=== PATIENT | female | born 1965 | race Caucasian/White ===

== ENCOUNTER → 2023-07-24 19:09 | Outpatient (REF) | payer BC, SELFPAY | LOC: WDC 19:09 | PROVIDERS: ATTENDING PHYSICIAN Obstetrics & Gynecology; FAMILY PHYSICIAN Family Medicine | DX: Z12.31 Encounter for screening mammogram for malignant neoplasm of breast (principal) | CPT/HCPCS: 77063; 77067 ==

== ENCOUNTER 2024-02-15 05:09 | Emergency (ER) | payer BC, SELFPAY ==
[2024-02-15 05:13] VITALS: BP 104/68
[2024-02-15 09:00] VITALS: BP 111/67; BMI 23.6
[2024-02-15 09:09] LABS: % Basophils 0.6 % (0-2); % Eosinophils 1.8 % (0-6); % Immature Granulocytes 0.3 % (0-0.5); % Lymphocytes 31.3 % (20.5-51.1); % Monocytes 7.9 % (1.7-9.3); % Neutrophils 58.1 % (42.2-75.2); Absolute Eosinophils 0.1 10^3/uL (0-0.7); Absolute Lymphocytes 2.1 10^3/uL (1.2-3.4); Absolute Monocytes 0.5 10^3/uL (0.1-0.6); Absolute Neutrophils 3.9 10^3/uL (1.4-6.5); Hematocrit 42.1 % (37.0-47.0); Hemoglobin 13.5 g/dL (12.0-16.0); Mean Corp Hgb Conc. 32.1 g/dL (33.0-37.0); Mean Corpuscular Hgb 29.3 pg (27.0-31.0); Mean Corpuscular Volume 91.3 fL (81.0-99.0); Mean Platelet Volume 9.7 fL (7.4-10.4); Nucleated Red Blood Cells % 0 %; Platelet Count 215 10^3/uL (130-400); Red Blood Cell Count 4.61 10^6/uL (4.20-5.40); Red Cell Dist. Width 12.3 % (11.5-14.5); White Blood Cell Count 6.7 10^3/uL (4.8-10.8)
[2024-02-15 09:22] LABS: ALT (SGPT) 69 U/L (0-35); AST (SGOT) 40 U/L (14-36); Albumin 4.4 g/dl (3.5-5.0); Alkaline Phosphatase 99 U/L (38-126); Blood Urea Nitrogen 14 mg/dl (7-17); Calcium 9.4 mg/dl (8.4-10.2); Carbon Dioxide 29 mmol/L (22-30); Chloride 102 mmol/L (98-107); Estimated Creatinine Clearance 87 ml/min; Glucose 99 mg/dl (70-99); Sodium 139 mmol/L (135-145); Total Bilirubin 0.3 mg/dl (0.2-1.3); Total Protein 7.1 g/dl (6.3-8.2); eGFR > 60.00
[2024-02-15 09:29] LABS: Urine Albumin Negative (Neg - Trace); Urine Bilirubin Negative (Negative); Urine Character Clear (Clear); Urine Color Yellow; Urine Glucose Negative (Negative); Urine Ketone Negative (Negative); Urine Leukocyte 2+ (Negative); Urine Nitrite Negative (Negative); Urine Occult Blood Negative (Negative); Urine Urobilinogen Negative (Neg - 1+)
[2024-02-15 09:38] LABS: Lipase 68 U/L (23-300)
[2024-02-15] MEDS: TORADOL 15 MG IV ×2 (09:55→11:53)
[2024-02-15] MEDS: NSS 1000 IV (09:56)
--- NOTE | 2024-02-15 10:36 | ED.GENMED ---
History of Present Illness
General
Chief Complaint: Urinary Symptoms
Source: patient
Exam Limitations: none
Time Seen by Provider: 02/15/24 08:48
Nursing documentation reviewed up to this point in time: agreed with
History of Present Illness
History of Present Illness:
Patient is a 58-year-old female with a history of previous urinary tract infections and kidney stones not requiring surgery presents for some generalized suprapubic pain and urinary discomfort that started 3 weeks ago. She had a little bit of gross
hematuria as well but it seemed to get better for a week or 2 before she ended up having another episode of painless hematuria but just had some discomfort in her suprapubic region in general with radiation to her back. Patient says that she ended
up seeing her family doctor 5 days ago who told her she had blood in her urine and likely a urinary tract infection so they started her on Bactrim. Patient took that for 2 days before getting a call that she needed to have her antibiotic switched
and she was switched to plain amoxicillin 500 3 times daily which she has taken for the last 2-1/2 days she still having the same symptoms of not feeling well, some nausea, lower abdominal pain radiating to both sides of her back. She says she just
does not feel well, she has a headache. She has not had a fever or chills. She has no history of pyelonephritis
Past History
Past History
ED Past Medical History: GERD and Other (Kidney stones, UTIs)
Social History
Tobacco: Non-smoker
Alcohol: None
Drug: None
Review of Systems
Review of Systems
Allergies reviewed?: Yes
All Other Systems: Not applicable
Phy Exam
Physical Exam
Physical Exam:
GENERAL: Alert, looks comfortable
Neck: supple
CARDIAC: Regular rate and rhythm .
LUNGS: Clear breath sounds bilaterally, no acute respiratory distress, no wheezes/rales/rhonchi
ABDOMEN: Soft, normal bowel sounds, nondistended, moderate suprapubic tenderness s, no guarding, no rebound, neg kevin's
Left CVA tenderness
NEUROLOGICAL: Alert and oriented, no focal neuro deficits
SKIN: Warm and dry, skin intact.
PSYCH: Normal and appropriate interaction.
Course
Orders/Labs/Results
Orders:
Orders
02/15/24 08:55
Complete Blood Count/With Diff Urgent
Comprehensive Metabolic Panel Urgent
Lipase Urgent
Comment: ADD ON
Urinalysis Reflex To Culture Urgent
Date Specimen was Collected: 02/15/24
Time Specimen was Collected: 08:50
Urine Microscopic Reflex Cult Urgent
Urine Culture Urgent
SHEREE Source: U
Specimen Description:
Date Specimen was Collected: 02/15/24
Time Specimen was Collected: 08:50
02/15/24 09:04
Add On- LAB Urgent
Tests Added?: Lipase
02/15/24 09:10
CT Abd/Pel (IV only)-DH only Urgent
Comment:
Reason For Exam: b/l CVA pain, UTI; h/o stones
0.9% Sodium Chloride 1000 ml [Nss] 1,000 ml IV BOLUS
Ketorolac [Toradol] 15 mg IV NOW STA
02/15/24 11:45
Acetaminophen [Tylenol] 650 mg PO NOW STA
Ketorolac [Toradol] 15 mg IV NOW STA
02/15/24 11:52
Chlamydia/GC by PCR Urgent
SHEREE Source: Endo-Cervical
Specimen Description:
Source:: ENDOCERVICAL
Date Specimen was Collected: 02/15/24
Time Specimen was Collected: 11:47
Abnormal Lab Results
02/15/24
08:55
MCHC 32.1 L g/dL
(33.0-37.0)
Creatinine 0.5 L mg/dL
(0.6-1.0)
AST 40 H U/L
(14-36)
ALT 69 H U/L
(0-35)
Leukocyte Esterase Rfl 2+ A
(Negative)
02/15/24 08:55
02/15/24 08:55
Vital Signs
Initial and Last Documented VS:
Initial Vital Signs
Temp Pulse Resp BP Pulse Ox
36.8 C 74 20 104/68 98
02/15/24 05:13 02/15/24 05:13 02/15/24 05:13 02/15/24 05:13 02/15/24 05:13
Last Documented Vital Signs
Temp Pulse Resp BP Pulse Ox
36.6 C 74 20 100/72 100
02/15/24 09:00 02/15/24 11:31 02/15/24 11:31 02/15/24 12:00 02/15/24 12:15
MDM/Problems Addressed
Differential Diagnosis Includes:
Kidney stone, cystitis, pelvic inflammatory disease, pyelonephritis
MDM/Problems Addressed:
58-year-old female with a history of previous UTIs and kidney stones presents for several days of lower abdominal pain rating to her back, not feeling well, achy, and fatigued. Patient went to her family doctor 5 days ago where she had a UA and
tested positive for an infection. She was given Bactrim for several days and then switched to amoxicillin which she has been taking but still feeling symptomatic. She has seen a couple of times that she has had gross hematuria. On exam the
patient's nontoxic-appearing, comfortable, has a little bit of CVA tenderness and moderate suprapubic tenderness but no guarding or rebound. Her labs were reviewed with a normal white count, mildly elevated liver enzymes, normal creatinine, normal
pancreas, urine looks contaminated with leukocytes, 3-5 whites, some urothelial cells and crystals. She is negative nitrate and not having any blood.
Her CT scan shows no signs of obstructive uropathy, she does have a small nonobstructing left renal calculus 5 mm and moderate colonic stool burden which could reflect constipation. Her bladder looks unremarkable. I did a pelvic exam which did not
show any signs of obvious cervicitis she was sent for GC chlamydia testing. She will need to be called back with these results if positive.
For now I did reach out to her family doctor's office to try to get a copy of the urine culture results to see if the amoxicillin would suffice. Otherwise she will be sent home with outpatient follow-up
URINE culture was group B strep susceptable to darin, pt on amox
no treatment change
d/w pcp dr. edward
who agree with plan
gc/ct pending
d/c home
*Critical Care Note
Total Time (30-74mins, 75-104mins- exclusive of procedures): Not Applicable
ED Attending Note
-
Portions of this chart may have been created with voice recognition software.� Occasional wrong word or��sound alike� substitutions may have occurred due to the inherent limitations of voice recognition software.
Discharge Plan
Departure
Patient Disposition: Home (Routine Discharge)
Date of Disposition: 02/15/24
Time of Disposition: 11:33
Patient with high blood pressure during this ER visit?: No
Condition: Fair
Discharge Problem:
Abdominal pain
Instructions: Urinary Tract Infection, Adult (DC), Abdominal pain in adults - ED discharge instructions
Prescriptions:
No Action
No Current Medications
0
Referrals:
Keaton Edward MD [Family Provider] - Follow up in 2-3 days
Activity Restrictions/Additional Instructions:
Were not entirely sure the cause of your symptoms however it could be just from your urinary tract infection. Your urine today looked contaminated but I would recommend that you continue your antibiotics. Your bladder looks normal on your CAT
scan. You had no passing kidney stones but do have a 5 mm stone in the pole of your left kidney. Incidentally you also have some stool burden in your colon which could reflect constipation. This can also cause pain. You have a tiny 4 mm
subpleural right middle lobe nodule which looks benign,
this is in your lung. It just needs follow-up in 6 to 12 months
Continue antibiotics, bland diet, try a dose of MiraLAX. Take Tylenol or ibuprofen for pain
tylenol is 650 mg every 6 horus as needed
motrin is 600 mg every 8 hours as needed
. Return for any worsening symptoms.
Interventions
Interventions:
*Risk Screen - Suicide Last Done: 02/15/24 05:13
*General Assessment Last Done: 02/15/24 09:00
*Neglect/Abuse Screening Last Done: 02/15/24 05:13
ED- Fall Risk Assessment Last Done: 02/15/24 09:00
*ED COVID-19 Vaccine History Last Done: 02/15/24 09:00
*Nursing Disposition Last Done: 02/15/24 12:27
ED-Female Genitourinary Assessment Last Done: 02/15/24 09:00
Discharge Date and Time
Discharge Date/Time: 02/15/24 12:28
Print Language: SWEDISH
[2024-02-15 10:41] LABS: Urine Amorphous Seen; Urine Squamous Cell 26-30 /LPF (Few)
[2024-02-15 10:44] LABS: Urine Red Blood Cell 0-2 /HPF (0-2)
[2024-02-15 11:21] VITALS: BP 139/75
[2024-02-15 11:31] VITALS: BP 139/75
[2024-02-15 12:00] VITALS: BP 100/72
== END 2024-02-15 12:28 | disposition home or self-care (01) ==
LOC: EMR 05:09
PROVIDERS: Physician Assistant; EMERGENCY PHYSICIAN Emergency Medicine; FAMILY PHYSICIAN Family Medicine
DX: R10.9 Unspecified abdominal pain (principal)
CPT/HCPCS: 99285; 96374; 96376; 96361; 74177; 80053; 81003; 81015; 83690; 85025; 87086; 87491; 87591; Q9967

== ENCOUNTER → 2024-03-31 15:11 | Outpatient (REF) | payer BC, SELFPAY | LOC: RAD 15:11 | PROVIDERS: ATTENDING PHYSICIAN Surgery; FAMILY PHYSICIAN Family Medicine | DX: N20.0 Calculus of kidney (principal) | CPT/HCPCS: 74018 ==

== ENCOUNTER → 2024-04-23 16:36 | Outpatient (REF) | payer BC, SELFPAY | LOC: RAD 16:36 | PROVIDERS: ATTENDING PHYSICIAN Surgery; FAMILY PHYSICIAN Family Medicine | DX: N20.0 Calculus of kidney (principal) | CPT/HCPCS: 74018 ==

== ENCOUNTER 2024-05-21 06:12 | Day surgery (SDC) | payer BC, SELFPAY ==
[2024-05-13 08:48] LABS: Hematocrit 38.1 % (37.0-47.0); Hemoglobin 12.3 g/dL (12.0-16.0); Mean Corp Hgb Conc. 32.3 g/dL (33.0-37.0); Mean Corpuscular Hgb 29.2 pg (27.0-31.0); Mean Corpuscular Volume 90.5 fL (81.0-99.0); Platelet Count 224 10^3/uL (130-400); Red Blood Cell Count 4.21 10^6/uL (4.20-5.40); Red Cell Dist. Width 12.2 % (11.5-14.5); White Blood Cell Count 5.4 10^3/uL (4.8-10.8)
[2024-05-13 09:12] LABS: Blood Urea Nitrogen 22 mg/dl (7-17); Calcium 9.5 mg/dl (8.4-10.2); Carbon Dioxide 32 mmol/L (22-30); Chloride 106 mmol/L (98-107); Glucose 101 mg/dl (70-99); Potassium 4.2 mmol/L (3.5-5.1); Sodium 144 mmol/L (135-145); eGFR > 60.00
[2024-05-13 14:02] VITALS: BMI 22.6
[2024-05-21] VITALS (13 sets, daily range): BP systolic 114–136; BP diastolic 53–83; BMI 22.6; BMI 23.5
[2024-05-21] MEDS: DETROL LA 4 MG PO (13:28)
[2024-05-21] MEDS: Pyridium 200 MG PO (13:28)
[2024-05-21] MEDS: DILAUDID 0.25 MG IV (14:02)
== END 2024-05-21 15:45 | disposition home or self-care (01) ==
LOC: SDS 06:12
PROVIDERS: ATTENDING PHYSICIAN Surgery; FAMILY PHYSICIAN Family Medicine
DX: N20.1 Calculus of ureter (principal); R31.29 Other microscopic hematuria
CPT/HCPCS: 52356; 74018; 76000; 80048; 82365; 85027; 93005; C1769; C1894; C2617

== ENCOUNTER → 2024-07-26 16:53 | Outpatient (REF) | payer BC, SELFPAY | LOC: WDC 16:53 | PROVIDERS: ATTENDING PHYSICIAN Family Medicine; FAMILY PHYSICIAN Family Medicine | DX: Z12.31 Encounter for screening mammogram for malignant neoplasm of breast (principal) | CPT/HCPCS: 77063; 77067 ==